=== PATIENT | male | born 1935 | race Caucasian/White ===

== ENCOUNTER 2017-01-01 10:53 | Outpatient (CLI) | payer OTHER, BC ==
--- NOTE | 2017-01-01 11:16 | DIAGNOSTIC IMAGING REPORT ---
PROCEDURE: XR CHEST 2 VIEW INDICATION: COUGH TECHNIQUE: PA and lateral views. COMPARISON: Chests 2013 and 2010 FINDINGS: There is a new left lower lobe infiltrate. The right lung is unchanged from 2010 and clear. Pulmonary vasculature is normal. Previous sternotomy. IMPRESSION: 1. New left lower lobe infiltrate.
== END 2017-01-01 23:00 ==
LOC: XR SRH 10:53
DX: R05 Cough (principal); R91.8 Other nonspecific abnormal finding of lung field

== ENCOUNTER 2017-01-14 16:37 | Outpatient (CLI) | payer OTHER, BC ==
--- NOTE | 2017-01-15 14:36 | DIAGNOSTIC IMAGING REPORT ---
PROCEDURE: XR CHEST 2 VIEW INDICATION: PNEMONIA TECHNIQUE: PA and lateral views. COMPARISON: None. FINDINGS: There has been a decrease in the left lower lobe infiltrate. Heart and mediastinum are normal. Thorax is normal. IMPRESSION: 1. Decrease in the left lower lobe infiltrate.
== END 2017-01-14 23:00 ==
LOC: XR SRH 16:37
DX: J15.9 Unspecified bacterial pneumonia (principal); H61.21 Impacted cerumen, right ear; E11.9 Type 2 diabetes mellitus without complications

== ENCOUNTER 2017-01-31 10:49 | Outpatient (CLI) | payer OTHER, BC ==
--- NOTE | 2017-01-31 12:19 | DIAGNOSTIC IMAGING REPORT ---
PROCEDURE: XR CHEST 2 VIEW INDICATION: PNEUMONIA,BACTERIAL TECHNIQUE: PA and lateral views. COMPARISON: Chest 01/14/2017 and 01/01/2017 FINDINGS: Further decrease in the left lower lobe infiltrate. Right lung remains clear. Median sternotomy and hiatal hernia. IMPRESSION: 1. Further decrease in left lower lobe infiltrate.
== END 2017-01-31 23:00 | disposition home or self-care (01) ==
LOC: XR SRH 10:49
DX: J15.9 Unspecified bacterial pneumonia (principal)

== ENCOUNTER 2017-02-20 10:14 | Outpatient (CLI) | payer OTHER, BC ==
--- NOTE | 2017-02-20 12:09 | DIAGNOSTIC IMAGING REPORT ---
PROCEDURE: CT IAC/PF/ORBIT W/OUT CONTRAST INDICATION: Right hearing loss. Possible cholesteatoma. TECHNIQUE: Thin-cut noncontrast axial images with coronal reformations of bilateral temporal bones and mastoids. COMPARISON: None. FINDINGS: RIGHT TEMPORAL BONES AND MASTOIDS: There is marked mucosal thickening and/or fluid throughout the right mastoid air cells, epitympanum, and the mid and posterior mesotympanum (including the facial and pyramidal recesses). This is associated with retraction and mild thickening of the right tympanic membrane. Middle ear ossicles are normal, and there are no erosive changes. Scutum is normal. 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 Cochlea, vestibule, and semicircular canals are normal. There is dehiscence of the labyrinthine facial nerve canal (normal variant). Right internal auditory canal is normal. LEFT TEMPORAL BONES AND MASTOIDS: There is mild mucosal thickening of the left mastoid air cells (appears chronic). Left middle ear, external auditory canal, and inner ear (cochlea, vestibule, semicircular canals) are normal. Left internal auditory canal is normal. There is canal dehiscence of the labyrinthine segment of the left facial nerve (normal variant). IMPRESSION: 1. Marked mucosal thickening and/for fluid throughout the right mastoid air cells, epitympanum, and posterior mesotympanum. Findings are consistent with chronic or acute/resolving otitis/mastoiditis. There are no definite osseous erosions to suggest cholesteatoma. 2. 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 3. There is osseous dehiscence of bilateral labyrinthine facial nerve canals (normal variant). 4. Normal left temporal bone and mastoids. All CT scans at this facility use dose modulation, iterative reconstruction, and/or weight-based dosing when appropriate to reduce radiation dose to as low as reasonably achievable.
== END 2017-02-20 23:00 ==
LOC: CT SRH 10:14
DX: D21.0 Benign neoplasm of connective and other soft tissue of head, face and neck (principal); H91.91 Unspecified hearing loss, right ear

== ENCOUNTER 2017-03-26 09:22 | Outpatient (CLI) | payer OTHER, BC ==
--- NOTE | 2017-03-26 10:33 | DIAGNOSTIC IMAGING REPORT ---
PROCEDURE: XR CHEST 2 VIEW INDICATION: PNEUMONIA,BACTERIAL TECHNIQUE: PA and lateral views. COMPARISON: Chest 01/31, 01/14 and 01/01/2017 FINDINGS: Lungs are clear. Heart and mediastinum are normal. Thorax is normal. IMPRESSION: 1. Lungs clear, resolution of left lower lobe infiltrate.
== END 2017-03-26 23:00 ==
LOC: XR SRH 09:22
DX: J15.9 Unspecified bacterial pneumonia (principal)